=== PATIENT | male | born 1935 | race Caucasian/White ===

== ENCOUNTER 2023-07-08 19:39 | Inpatient (IN) | payer MEDICARE, SELFPAY ==
--- NOTE | 2023-07-08 20:07 | PCM.HP.STD ---
HPI - General General Date of Admission: 07/08/23 Date of Service: 07/11/23 Chief Complaint: Here for rehabilitation. HPI Narrative 07/05/2023 THEO ALVAREZ, is a 87 Male who presents to [facility] with fall, left hip fracture. Transfer to [facility]. 07/05/2023 Admit to [facility]. Syncope, no head injury. CT shows left hip fracture. Prepare for surgery. Check UA, C+S, Orthostatics for syncope, collapse. 07/05/2023 Orthopedics performed left hip hemiarthroplasty. 07/06/2023 Doing well. 07/07/2023 PT/OT for debility. Pain control. Replace K 3.1 UA negative, Urine culture negative. Tamsulosin 0.4mg, Roberts catheter for urinary retention/BPH. Lovenox for DVT prophylaxis. + Shuffling gait. CT abdomen/pelvis showed constipation. UTI later on treated with Keflex. 07/08/2023 Admit to TCU with debility, here for rehabilitation, strengthening, prior to discharge home with . [facility] Medical History (Updated 07/08/23 @ 20:[address] Jamie Deluna MD) BPH (benign prostatic hyperplasia) Closed left hip fracture Debility Fall Hypertension Hypokalemia Syncope Urinary retention Allergy/AdvReac Type Severity Reaction Status Date / Time No Known Allergies Allergy Verified 07/08/23 20:18 Surgical History (Updated 07/08/23 @ 20:[address] Jamie Deluna MD) History of left hip hemiarthroplasty Social History (Updated 07/08/23 @ 20:[address] Jamie Deluna MD) household members: spouse Smoking Status: Never smoker alcohol intake: never substance use type: does not use ROS Constitutional Constitutional: Denies chills, fever(s) or weight gain ENT HEENT: Denies headache(s), nasal congestion or nasal discharge Cardiovascular Cardiovascular: Denies chest pain or palpitations Respiratory/Chest Respiratory/Chest: Denies cough, excessive phlegm production or shortness of breath with exertion Gastrointestinal Gastrointestinal: Denies abdominal pain, nausea or vomiting Genitourinary Genitourinary: Denies dysuria Musculoskeletal Musculoskeletal: Denies joint pain or joint swelling Integumentary Integumentary: Denies rash or wounds Neurologic Neurologic: Denies focal weakness, numbness or tingling Psychiatric Psychiatric: Denies anxiety, auditory hallucinations, depression, homicidal ideation or suicidal ideation Physical Exam Const alert General Appearance: cooperative HEENT normocephalic Eyes PERRL and EOMs intact bilaterally Neck supple, no JVD and no carotid bruits Resp normal respiratory effort, normal air movement and clear to auscultation bilaterally Cardio regular rate and regular rhythm GI normal to inspection, nondistended, normoactive bowel sounds, non-tender and non-distended Bladder / Kidney Exam: catheter in place urethral Extremity normal capillary refill General Extremity: Negative for edema Skin no rashes or lesions noted General Skin Exam: no breakdown Psych affect normal Appearance: appropriate Results Lab / Micro Data 07/09/23 08:13 07/10/23 05:12 Assessment & Plan Assessment/Plan (1) Debility: (2) Fall: (3) Closed left hip fracture: (4) Syncope: (5) Urinary retention: (6) BPH (benign prostatic hyperplasia): (7) Hypertension: (8) Hypokalemia: (9) Urinary tract infection: PLAN: Plan 87 year old male with below past medical history hospitalized for left hip fracture, 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 Debility - PT/OT. Pain - Tylenol 1000mg q8, Tramadol 50mg q6h prn pain (1-5), Oxycodone 2.5mg q4h prn pain (6-10). Bowel - Miralax 17gm bid, senna/colace 1 tablet bid, Magnesium citrate 300ml daily prn. Adult immunization - Administer pneumonia vaccine, covid19 vaccine, flu vaccine as appropriate. DVT prophylaxis - Aspirin 81mg bid thru 08/04/2023. Urinary tract infection - Keflex 500mg q12h thru 07/15/2023. Hypertension - Metoprolol 25mg bid, Losartan 100mg daily, Nifedipine 60mg daily, HCTZ 25mg daily. Hypokalemia - KCL 20meq bidcm. BPH/Urinary retention - Tamsulosin 0.4mg daily, Voiding trails per protocol. Shuffling gait - monitor for Parkinson Disease, consider therapeutic trial of Sinemet.
[2023-07-08 20:10] VITALS: BP 139/56; PULSE 66; RESP 16; TEMP 36.3; O2SAT 95
[2023-07-08 22:53] VITALS: BP 139/56; PULSE 66
[2023-07-08] MEDS: Metoprolol Tartrate 25 MG Tablet PO (22:53)
[2023-07-08] MEDS: Acetaminophen 500 MG Tablet 1000 MG PO (22:54)
[2023-07-08] MEDS: Cephalexin 500 MG Capsule PO (22:55)
[2023-07-08] MEDS: Senna/Docusate Sodium 1 Tablet PO (22:56)
[2023-07-08] MEDS: Polyethylene Glycol 3350 17 GM PACKET PO (22:57)
[2023-07-09 05:00] VITALS: BP 152/67; PULSE 63; RESP 16; TEMP 36.6; O2SAT 95
[2023-07-09] MEDS: Acetaminophen 500 MG Tablet 1000 MG PO ×3 (05:05→21:13)
[2023-07-09 08:59] LABS: Anion Gap 5 (5-15); BUN 13 mg/dL (7-18); BUN/Creat Ratio 19.3 RATIO (10-20); Calcium,Total 8.2 mg/dL (8.5-10.1); Chloride 110 mmol/L (98-107); Creatinine, Serum 0.67 mg/dL (0.70-1.30); EST Glomerular Filtration Rate 119 mL/min (>60); Est Glom Filt Rate - Afr Amer 144 mL/min (>60); Glucose 105 mg/dL (74-106); Potassium 3.4 mmol/L (3.5-5.1); Sodium Level 141 mmol/L (136-145)
[2023-07-09 09:41] LABS: Absolute Lymphocyte Count 1.06 X10^3/uL (0.83-4.51); Basophil# 0.05 X10^3/uL; Basophil% 0.7 % (0-1); Eosinophil# 0.42 X10^3/uL; Eosinophils% 5.6 % (0-5); Hematocrit 40.8 % (40-54); Hemoglobin 13.4 g/dL (13.0-16.5); Lymphocyte # 1.06 X10^3/ul (0.83-4.51); Lymphocyte % 14.2 % (19-41); Mean Corp Hgb Conc 32.8 g/dL (32-36); Mean Corpuscular Hgb 31.9 pg (27.0-32.0); Mean Corpuscular Volume 97.1 fL (80-94); Mean Platelet Vol. 9.3 fl (6.2-12.0); Monocyte# 0.86 X10^3/uL; Monocyte% 11.6 % (0-10); NRBC Flagged by Analyzer 0 % (0-5); Neutrophil # 4.99 X10^3/uL (2.7-7.7); Neutrophil % 67.1 % (47-70); Platelet Count 194 K/mm3 (150-450); RBC Distribution Width CV 14.5 % (11.6-14.6); RBC Distribution Width SD 51.6 fl (35.1-43.9); White Blood Count 7.4 K/mm3 (4.4-11.0)
[2023-07-09 10:00] VITALS: PULSE 65; RESP 16; O2SAT 96
[2023-07-09] MEDS: Potassium Chloride Oral Tablet 20 MEQ 40 MEQ PO (10:47)
[2023-07-09 10:48] VITALS: BP 137/70; PULSE 67
[2023-07-09] MEDS: NIFEdipine 60 MG Tablet PO (10:48)
[2023-07-09] MEDS: Aspirin E.C. 81 MG Tablet PO ×2 (10:48→17:27)
[2023-07-09] MEDS: hydroCHLOROthiazide 25 MG Tablet PO (10:48)
[2023-07-09] MEDS: Potassium Chloride Oral Tablet 20 MEQ PO ×2 (10:48→17:27)
[2023-07-09] MEDS: Polyethylene Glycol 3350 17 GM PACKET PO ×2 (10:48→21:13)
[2023-07-09] MEDS: Losartan Potassium 100 MG Tablet PO (10:48)
[2023-07-09] MEDS: Senna/Docusate Sodium 1 Tablet PO ×2 (10:48→21:13)
[2023-07-09] MEDS: Metoprolol Tartrate 25 MG Tablet PO ×2 (10:48→21:14)
[2023-07-09] MEDS: Cephalexin 500 MG Capsule PO ×2 (10:48→21:13)
[2023-07-09] MEDS: Tuberculin,Purif.prot.deriv. 50 TU/ML Vial 0.1 ML ID (10:49)
[2023-07-09 11:21] VITALS: BMI 24.4
[2023-07-09 11:39] VITALS: BP 152/73; PULSE 65; RESP 16; TEMP 36.5; O2SAT 96
[2023-07-09] MEDS: oxyCODONE 5 MG Tablet 2.5 MG PO (13:38)
[2023-07-09] MEDS: Tamsulosin HCl 0.4 MG Capsule PO (17:27)
[2023-07-09 21:14] VITALS: BP 130/59; PULSE 71
[2023-07-10] MEDS: Acetaminophen 500 MG Tablet 1000 MG PO ×3 (05:26→21:24)
[2023-07-10] MEDS: oxyCODONE 5 MG Tablet 2.5 MG PO (05:34)
[2023-07-10 06:25] LABS: Anion Gap 5 (5-15); BUN 15 mg/dL (7-18); BUN/Creat Ratio 20.3 RATIO (10-20); Calcium,Total 8.5 mg/dL (8.5-10.1); Chloride 107 mmol/L (98-107); Creatinine, Serum 0.74 mg/dL (0.70-1.30); EST Glomerular Filtration Rate 106 mL/min (>60); Est Glom Filt Rate - Afr Amer 129 mL/min (>60); Estimated Creatinine Clearance 59.93 ml/min; Glucose 95 mg/dL (74-106); Potassium 3.5 mmol/L (3.5-5.1); Sodium Level 139 mmol/L (136-145)
[2023-07-10 08:21] VITALS: BP 145/62; PULSE 65
[2023-07-10] MEDS: Cephalexin 500 MG Capsule PO ×2 (08:21→21:25)
[2023-07-10] MEDS: Metoprolol Tartrate 25 MG Tablet PO ×2 (08:21→21:25)
[2023-07-10] MEDS: hydroCHLOROthiazide 25 MG Tablet PO (08:21)
[2023-07-10] MEDS: NIFEdipine 60 MG Tablet PO (08:21)
[2023-07-10] MEDS: Losartan Potassium 100 MG Tablet PO (08:21)
[2023-07-10] MEDS: Aspirin E.C. 81 MG Tablet PO ×2 (08:22→18:27)
[2023-07-10] MEDS: Potassium Chloride Oral Tablet 20 MEQ PO ×2 (08:22→18:27)
[2023-07-10 10:00] VITALS: BP 145/62; PULSE 65; RESP 16; TEMP 36.7; O2SAT 94
--- NOTE | 2023-07-10 12:48 | NURSING ---
family and pt aware of covid + pts on unit today
[2023-07-10] MEDS: traMADol 50 MG Tablet PO (13:01)
--- NOTE | 2023-07-10 13:37 | NURSING ---
dressing changed to LT hip incision, all sides of surgical mepilex with dried and fresh serosang drng. Incision with breanna, no active bleeding, slight seeping. incision well approximated, lots bruising around site no signs of infection.
[2023-07-10 15:12] VITALS: PULSE 78; RESP 16; O2SAT 97
[2023-07-10] MEDS: Tamsulosin HCl 0.4 MG Capsule PO (18:27)
[2023-07-10] MEDS: Polyethylene Glycol 3350 17 GM PACKET PO (21:23)
[2023-07-10] MEDS: Senna/Docusate Sodium 1 Tablet PO (21:24)
[2023-07-10 21:25] VITALS: BP 132/76; PULSE 71
[2023-07-11] MEDS: Acetaminophen 500 MG Tablet 1000 MG PO ×3 (05:38→21:16)
[2023-07-11] MEDS: Cephalexin 500 MG Capsule PO ×2 (08:50→21:15)
[2023-07-11] MEDS: NIFEdipine 60 MG Tablet PO (08:50)
[2023-07-11] MEDS: Aspirin E.C. 81 MG Tablet PO ×2 (08:50→17:48)
[2023-07-11] MEDS: hydroCHLOROthiazide 25 MG Tablet PO (08:50)
[2023-07-11 08:51] VITALS: PULSE 76
[2023-07-11] MEDS: Metoprolol Tartrate 25 MG Tablet PO ×2 (08:51→21:16)
[2023-07-11] MEDS: Losartan Potassium 100 MG Tablet PO (08:51)
[2023-07-11] MEDS: Potassium Chloride Oral Tablet 20 MEQ PO ×2 (08:51→17:48)
--- NOTE | 2023-07-11 13:12 | NURSING ---
Corn Shucker Note; Activity Asset: Ron Patrick prefers to be called Bennie. Bennie is independent in his choice of daily activities. 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 Sherita family and friends will visit and being him items he may need. He will welcome visit from the weighmaster and therapy dog when available. Staff will remind him of daily activities and respect his right to say no.
[2023-07-11 15:01] VITALS: BP 119/69; PULSE 60; RESP 16; TEMP 36.6; O2SAT 95
--- NOTE | 2023-07-11 16:20 | CASEMGMT ---
Social Work SW met with pt to complete psychosocial assessment. SW verified contacts. Pt lives at home with his who is retired. 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 Pt was independent prior to fall and plans to return home with spouse at time of discharge. SW educated pt on [facility] insurance and that NRD is 07/12 and continued stay is not guaranteed. SW to continue to follow for d/c planning. SANDIE Gonsalez
--- NOTE | 2023-07-11 16:29 | NURSING ---
Family given update additional staff members have covid.
[2023-07-11] MEDS: Tamsulosin HCl 0.4 MG Capsule PO (17:55)
[2023-07-11 21:11] VITALS: BP 138/82; PULSE 87; RESP 18; TEMP 36.6; O2SAT 95
[2023-07-11 21:16] VITALS: BP 138/82; PULSE 87
[2023-07-11] MEDS: Senna/Docusate Sodium 1 Tablet PO (21:16)
--- NOTE | 2023-07-11 21:20 | NURSING ---
Pt found on floor in room next to bed at 2100, states he did not hit his head and was attempting to go to bed. Pt had on grippy socks and call light in reach. Educated on need to use call light for assistance. Vitals WNL, PERRLA, no visable signs of discomfort/distress or new injury at this time. Mepilex to Left hip still in place . RN and stevedoring supervisor, Dr. Deluna notified.
--- NOTE | 2023-07-11 21:34 | NURSING ---
Addendum entered by Leeann King 07/11/23 21:44: Dr. Deluna updated on fall. N.O. for personal alarm. Original Note: glue specialty supervisor updated on fall.
--- NOTE | 2023-07-11 21:49 | NURSING ---
N.OKayce from Dr. Deluna for a personal alarm d/t recent fall.
[2023-07-11 22:00] VITALS: BP 141/68; PULSE 78; RESP 16; TEMP 36.7; O2SAT 92
--- NOTE | 2023-07-11 22:05 | NURSING ---
Pt's notified at this time , thankful for phone call. Will continue to monitor pt.
[2023-07-12] MEDS: Acetaminophen 500 MG Tablet 1000 MG PO ×3 (06:53→21:41)
[2023-07-12 08:31] VITALS: BP 125/64; PULSE 66
[2023-07-12] MEDS: traMADol 50 MG Tablet PO (08:31)
[2023-07-12] MEDS: Metoprolol Tartrate 25 MG Tablet PO ×2 (08:31→21:38)
[2023-07-12] MEDS: hydroCHLOROthiazide 25 MG Tablet PO (08:32)
[2023-07-12] MEDS: Senna/Docusate Sodium 1 Tablet PO ×2 (08:32→21:41)
[2023-07-12] MEDS: Aspirin E.C. 81 MG Tablet PO ×2 (08:32→16:37)
[2023-07-12] MEDS: Losartan Potassium 100 MG Tablet PO (08:32)
[2023-07-12] MEDS: Potassium Chloride Oral Tablet 20 MEQ PO ×2 (08:33→16:37)
[2023-07-12] MEDS: Cephalexin 500 MG Capsule PO ×2 (08:33→21:41)
[2023-07-12] MEDS: NIFEdipine 60 MG Tablet PO (08:33)
[2023-07-12 08:36] VITALS: PULSE 66
--- NOTE | 2023-07-12 11:56 | PCM.PN.DRR ---
TCU RX Drug Regimen Review Subjective/Objective Subjective/Objective: Subjective: 87 YOM admitted to TCU S/P hospitalization at an outside facility secondary to fall. Patient had a L-hip hemiarthroplasty on 07/05/23, and also developed a UTI while at the outside hospital. Admitted to TCU 07/08/23 for rehabilitation and strengthening prior to discharge home where he resides with his . Objective: Allergies No Known Allergies Allergy (Verified 07/08/23 20:18) Current Medications Generic Name Dose Route Start Last Admin Trade Name Freq PRN Reason Stop Dose Admin Acetaminophen 1,000 mg 07/08/23 22:00 07/12/23 06:53 Acetaminophen 500 Mg Tablet PO 1,000 mg Q8 ELLY Administration Aspirin 81 mg 07/09/23 08:00 07/12/23 08:32 Aspirin E.C. 81 Mg Tablet PO 08/04/23 19:59 81 mg BIDCM ELLY Administration Cephalexin 500 mg 07/08/23 22:00 07/12/23 08:33 Cephalexin 500 Mg Capsule PO 07/15/23 22:01 500 mg Q12 ELLY Administration Hydrochlorothiazide 25 mg 07/09/23 10:00 07/12/23 08:32 Hydrochlorothiazide 25 Mg Tablet PO 25 mg DAILY ELLY Administration Losartan Potassium 100 mg 07/09/23 10:00 07/12/23 08:32 Losartan Potassium 100 Mg Tablet PO 100 mg DAILY ELLY Administration Magnesium Citrate 300 ml 07/08/23 20:21 Magnesium Citrate 300 Ml PO DAILY PRN Constipation Metoprolol Tartrate 25 mg 07/08/23 22:00 07/12/23 08:31 Metoprolol Tartrate 25 Mg Tablet PO 25 mg BID ELLY Administration Nifedipine 60 mg 07/09/23 10:00 07/12/23 08:33 Nifedipine 60 Mg Tablet PO 60 mg DAILY ELLY Administration Oxycodone HCl 2.5 mg 07/08/23 20:21 07/10/23 05:34 Oxycodone 5 Mg Tablet PO 2.5 mg Q4H PRN PRN Administration Pain Score 6-10 Polyethylene Glycol 17 gm 07/08/23 22:00 07/12/23 08:33 Polyethylene Glycol 3350 17 Gm Packet PO Not Given BID ELLY Potassium Chloride 20 meq 07/09/23 08:00 07/12/23 08:33 Potassium Chloride Oral Tablet 20 Meq PO 20 meq BIDCM ELLY Administration Senna/Docusate Sodium 1 tablet 07/08/23 22:00 07/12/23 08:32 Senna/Docusate Sodium 1 Tablet PO 1 tablet BID ELLY Administration Sodium Chloride 10 - 40 ml 07/08/23 20:20 0.9% Saline Lock 10 Ml Syringe IV UD PRN SALINE FLUSH Tamsulosin HCl 0.4 mg 07/09/23 17:30 07/11/23 17:55 Tamsulosin Hcl 0.4 Mg Capsule PO 0.4 mg DAILY@1730 ELLY Administration Tramadol HCl 50 mg 07/08/23 20:21 07/12/23 08:31 Tramadol 50 Mg Tablet PO 50 mg Q6H PRN PRN Administration Pain Score 1-5 Tuberculin PPD 0.1 ml 07/16/23 10:00 Tuberculin,Purif.Prot.Deriv. 50 Tu/Ml Vial ID 07/16/23 10:01 X1 ONE Problem List (Updated 07/08/23 @ 20:[address] Jamie Deluna MD) Urinary tract infection (Acute) Hypokalemia (Acute) Hypertension (Chronic) BPH (benign prostatic hyperplasia) (Acute) Urinary retention (Acute) Syncope (Acute) Closed left hip fracture (Acute) Fall (Acute) Debility (Acute) Vital Signs Temp Pulse Resp BP Pulse Ox O2 Del Method 98.0 F 66 16 125/64 H 92 Room Air 07/11/23 22:00 07/12/23 08:36 07/11/23 22:00 07/12/23 08:31 07/11/23 22:00 07/12/23 08:36 Oxygen Delivery Method Room Air Weight: 83.915 kg Body Mass Index (BMI) 24.4 Sodium 139 mmol/L (136-145) 07/10/23 05:12 Potassium 3.5 mmol/L (3.5-5.1) 07/10/23 05:12 Chloride 107 mmol/L (98-107) 07/10/23 05:12 Carbon Dioxide 27.0 mmol/L (21.0-32.0) 07/10/23 05:12 Anion Gap 5 (5-15) 07/10/23 05:12 BUN 15 mg/dL (7-18) 07/10/23 05:12 Creatinine 0.74 mg/dL (0.70-1.30) 07/10/23 05:12 Est GFR (MDRD) Af Amer 129 mL/min (>60) 07/10/23 05:12 Est GFR (MDRD) Non-Af 106 mL/min (>60) 07/10/23 05:12 BUN/Creatinine Ratio 20.3 RATIO (10-20) H 07/10/23 05:12 Glucose 95 mg/dL (74-106) 07/10/23 05:12 Assessment/Plan: 1. Pain: Tylenol 1000mg PO Q8h, Tramadol 50mg PO Q6h PRN Pain 1-5, Oxycodone 2.5mg PO Q4h PRN Pain 6-10. Please continue to monitor for increased/decreased S/S pain, PRN medication usage, constipation/oversedation with narcotic usage. - To date, the patient has used 2 doses of both tramadol and oxycodone. Premedication pain scores rated 5-9/10, post-med pain scores rated 0-4. It appears patient's pain is being managed at this time. 2. HTN: Hydrochlorothiazide 25mg PO daily, Losartan 100mg PO daily, Lopressor 25mg PO BID, Nifedipine 60mg PO daily. Please continue to monitor BP (range 119-141/64-82), pulse (range 66-87), electrolytes (WNL 07/10/23), lower extremity swelling, renal function (Scr 0.74 on 07/10). 3. Post-op DVT Prophylaxis: Aspirin 81mg PO BID thru 08/04/23. Please continue to monitor H/H (WNL on 07/10), S/S bleeding/bruising, N/V/stomach upset with administration. 4. UTI/ BPH: Keflex 500mg PO BID thru 07/15/23, Flomax 0.4mg PO daily. Please continue to monitor for resolution of infection, N/V/D, urinary retention/frequency/hesitancy. 5. Hypokalemia: K-Dur 20mEq PO BID. Please continue to monitor potassium levels (3.5 on 07/10), stomach upset with administration. 6. Bowel: Miralax 17g PO BID, Senna/Docusate 1 tab PO BID, Magnesium Citrate 300mL PO daily PRN. Please continue to monitor for increased/decreased S/S constipation and/or diarrhea - To date, the patient does not have a documented BM. Please evaluate and consider giving PRN medication since pt without BM for >48hrs Assessment/Plan for indications treated with psychotropic medications: The patient is not currently taking any psychotropic medications at time of medication review. Medical chart and medication regimen reviewed. The following medication irregularities or issues were identified: No irregularities were identified at time of medication review Date Date of Note:: 07/12/23
[2023-07-12 16:00] VITALS: BP 125/60; PULSE 59; RESP 16; TEMP 36; O2SAT 96
[2023-07-12] MEDS: Tamsulosin HCl 0.4 MG Capsule PO (18:06)
[2023-07-12 21:38] VITALS: BP 114/61; PULSE 72
[2023-07-13] MEDS: Acetaminophen 500 MG Tablet 1000 MG PO ×3 (05:23→21:19)
[2023-07-13] MEDS: Potassium Chloride Oral Tablet 20 MEQ PO ×2 (09:58→17:11)
[2023-07-13] MEDS: Aspirin E.C. 81 MG Tablet PO ×2 (09:58→17:12)
[2023-07-13] MEDS: NIFEdipine 60 MG Tablet PO (09:59)
[2023-07-13] MEDS: Losartan Potassium 100 MG Tablet PO (09:59)
[2023-07-13] MEDS: hydroCHLOROthiazide 25 MG Tablet PO (09:59)
[2023-07-13] MEDS: Cephalexin 500 MG Capsule PO ×2 (10:00→21:18)
[2023-07-13] MEDS: Senna/Docusate Sodium 1 Tablet PO (10:00)
--- NOTE | 2023-07-13 10:12 | CASEMGMT ---
Social Work IDT met with patient, and son for care plan meeting. Discussed patient's progress in PT/OT/SN. Educated to [facility] insurance with NRD 07/18, EDC 07/25. IDT recommending 16/05 care and concerned about being able to care for pt. Educated to nonskilled and skilled HHC, SNF and financial liability. Encouraged for family to discuss alternative DC plan prior to insurance issuing DC. SW offered assistance for DC planning. Will continue to follow. RUBI NguyenW
[2023-07-13 11:45] VITALS: BP 129/64; PULSE 62
[2023-07-13] MEDS: Metoprolol Tartrate 25 MG Tablet PO ×2 (11:45→21:19)
--- NOTE | 2023-07-13 15:23 | NURSING ---
Notified family of positive new covid patients
[2023-07-13 16:00] VITALS: BP 110/56; PULSE 57; RESP 16; TEMP 36.2; O2SAT 94
[2023-07-13] MEDS: Tamsulosin HCl 0.4 MG Capsule PO (17:12)
--- NOTE | 2023-07-13 17:39 | NURSING ---
Melisa () was updated + Covid patients on floor
[2023-07-13] MEDS: traMADol 50 MG Tablet PO (21:18)
[2023-07-13 21:19] VITALS: BP 121/55; PULSE 60
[2023-07-13 23:49] VITALS: O2SAT 95
[2023-07-14] MEDS: Acetaminophen 500 MG Tablet 1000 MG PO ×3 (05:44→22:20)
[2023-07-14] MEDS: Potassium Chloride Oral Tablet 20 MEQ PO ×2 (08:26→18:01)
[2023-07-14] MEDS: Aspirin E.C. 81 MG Tablet PO ×2 (08:26→18:01)
[2023-07-14] MEDS: traMADol 50 MG Tablet PO (08:35)
[2023-07-14] MEDS: hydroCHLOROthiazide 25 MG Tablet PO (12:41)
[2023-07-14] MEDS: Cephalexin 500 MG Capsule PO ×2 (12:41→22:20)
[2023-07-14 12:42] VITALS: PULSE 80
[2023-07-14] MEDS: Metoprolol Tartrate 25 MG Tablet PO ×2 (12:42→22:20)
[2023-07-14] MEDS: Losartan Potassium 100 MG Tablet PO (12:44)
[2023-07-14] MEDS: NIFEdipine 60 MG Tablet PO (12:44)
[2023-07-14 14:55] VITALS: BP 132/57; PULSE 61; RESP 14; TEMP 36.6; O2SAT 96
--- NOTE | 2023-07-14 16:22 | CASEMGMT ---
Social Work BIMS (10/07) and PHQ-9 (05/19) completed for MDS assessment. Sharon Watson. LOSS CONTROL CONSULTANT LOOM FIXER
[2023-07-14] MEDS: Tamsulosin HCl 0.4 MG Capsule PO (18:02)
[2023-07-14 22:20] VITALS: BP 132/61; PULSE 64
--- NOTE | 2023-07-14 22:39 | NURSING ---
Dressing changed to left hip incision. Still bruising all around cite, no active drainage or bleeding, no observation of infection, breanna intact.
[2023-07-15] MEDS: Acetaminophen 500 MG Tablet 1000 MG PO ×3 (05:33→21:34)
--- NOTE | 2023-07-15 09:46 | NURSING ---
Biometrics Technician Note; MDS Complete
[2023-07-15] MEDS: Losartan Potassium 100 MG Tablet PO (10:14)
[2023-07-15] MEDS: Potassium Chloride Oral Tablet 20 MEQ PO ×2 (10:14→17:45)
[2023-07-15] MEDS: NIFEdipine 60 MG Tablet PO (10:14)
[2023-07-15] MEDS: Cephalexin 500 MG Capsule PO ×2 (10:14→21:34)
[2023-07-15 10:15] VITALS: PULSE 80
[2023-07-15] MEDS: hydroCHLOROthiazide 25 MG Tablet PO (10:15)
[2023-07-15] MEDS: Metoprolol Tartrate 25 MG Tablet PO ×2 (10:15→21:34)
[2023-07-15] MEDS: Aspirin E.C. 81 MG Tablet PO ×2 (10:16→17:45)
[2023-07-15 14:53] VITALS: BP 121/50; PULSE 55; RESP 17; TEMP 37; O2SAT 96
[2023-07-15] MEDS: Tamsulosin HCl 0.4 MG Capsule PO (17:45)
[2023-07-15 21:34] VITALS: PULSE 60
[2023-07-16] MEDS: Acetaminophen 500 MG Tablet 1000 MG PO ×3 (05:33→22:20)
[2023-07-16] MEDS: Capsaicin 0.025% 1 APPLIC Tube TOPICAL ×3 (05:34→22:20)
[2023-07-16 07:57] LABS: Anion Gap 4 (5-15); BUN 20 mg/dL (7-18); BUN/Creat Ratio 24.7 RATIO (10-20); Calcium,Total 8.5 mg/dL (8.5-10.1); Chloride 111 mmol/L (98-107); Creatinine, Serum 0.81 mg/dL (0.70-1.30); EST Glomerular Filtration Rate 96 mL/min (>60); Est Glom Filt Rate - Afr Amer 116 mL/min (>60); Estimated Creatinine Clearance 73.98 ml/min; Glucose 94 mg/dL (74-106); Potassium 3.5 mmol/L (3.5-5.1); Sodium Level 140 mmol/L (136-145)
[2023-07-16] MEDS: Aspirin E.C. 81 MG Tablet PO ×2 (09:34→17:46)
[2023-07-16] MEDS: Potassium Chloride Oral Tablet 20 MEQ PO ×2 (09:34→17:47)
[2023-07-16] MEDS: hydroCHLOROthiazide 25 MG Tablet PO (09:35)
[2023-07-16] MEDS: Losartan Potassium 100 MG Tablet PO (09:35)
[2023-07-16] MEDS: NIFEdipine 60 MG Tablet PO (09:44)
[2023-07-16] MEDS: oxyCODONE 5 MG Tablet 2.5 MG PO (09:49)
[2023-07-16] MEDS: Tuberculin,Purif.prot.deriv. 50 TU/ML Vial 0.1 ML ID (09:51)
[2023-07-16 09:52] VITALS: BP 122/52; PULSE 52
[2023-07-16 11:35] VITALS: BP 137/59; PULSE 52; RESP 18; TEMP 37; O2SAT 95
[2023-07-16] MEDS: Tamsulosin HCl 0.4 MG Capsule PO (17:47)
[2023-07-16 18:07] LABS: Absolute Lymphocyte Count 1.67 X10^3/uL (0.83-4.51); Absolute Neutrophil Count 4.2 X10^3/uL (2.0-7.7); Basophil% 1.4 % (0-1); Eosinophil# 0.65 X10^3/uL; Eosinophils% 8.9 % (0-5); Hemoglobin 13.2 g/dL (13.0-16.5); Lymphocyte # 1.67 X10^3/ul (0.83-4.51); Lymphocyte % 22.8 % (19-41); Mean Corpuscular Hgb 31.9 pg (27.0-32.0); Mean Corpuscular Volume 96.6 fL (80-94); Mean Platelet Vol. 9.3 fl (6.2-12.0); Monocyte# 0.69 X10^3/uL; Monocyte% 9.4 % (0-10); NRBC Flagged by Analyzer 0 % (0-5); Neutrophil % 57.2 % (47-70); Platelet Count 328 K/mm3 (150-450); RBC Distribution Width CV 14.3 % (11.6-14.6); RBC Distribution Width SD 51.5 fl (35.1-43.9); Red Blood Count 4.14 M/mm3 (4.6-6.2); White Blood Count 7.3 K/mm3 (4.4-11.0)
[2023-07-16 22:22] VITALS: BP 122/69; PULSE 61
[2023-07-16] MEDS: Metoprolol Tartrate 25 MG Tablet PO (22:22)
[2023-07-17] MEDS: Capsaicin 0.025% 1 APPLIC Tube TOPICAL ×2 (06:29→13:29)
[2023-07-17 06:30] VITALS: O2SAT 96
[2023-07-17] MEDS: Acetaminophen 500 MG Tablet 1000 MG PO ×2 (06:30→13:28)
[2023-07-17] MEDS: Aspirin E.C. 81 MG Tablet PO ×2 (08:28→16:42)
[2023-07-17] MEDS: hydroCHLOROthiazide 25 MG Tablet PO (08:29)
[2023-07-17] MEDS: Potassium Chloride Oral Tablet 20 MEQ PO ×2 (08:29→16:42)
[2023-07-17] MEDS: traMADol 50 MG Tablet PO ×2 (08:34→20:36)
[2023-07-17 08:35] VITALS: BP 131/58; PULSE 60
[2023-07-17] MEDS: Metoprolol Tartrate 25 MG Tablet PO ×2 (08:35→20:35)
[2023-07-17] MEDS: NIFEdipine 60 MG Tablet PO (08:36)
[2023-07-17] MEDS: Losartan Potassium 100 MG Tablet PO (08:36)
[2023-07-17 15:35] VITALS: BP 128/64; PULSE 57; RESP 14; TEMP 36.9; O2SAT 94
[2023-07-17] MEDS: Tamsulosin HCl 0.4 MG Capsule PO (16:42)
[2023-07-17 20:35] VITALS: BP 131/57; PULSE 62
[2023-07-17] MEDS: Senna/Docusate Sodium 1 Tablet PO (20:36)
[2023-07-18] MEDS: Capsaicin 0.025% 1 APPLIC Tube TOPICAL ×3 (05:36→21:48)
[2023-07-18] MEDS: Acetaminophen 500 MG Tablet 1000 MG PO ×3 (05:36→21:42)
[2023-07-18] MEDS: Potassium Chloride Oral Tablet 20 MEQ PO ×2 (09:27→16:52)
[2023-07-18] MEDS: Aspirin E.C. 81 MG Tablet PO ×2 (09:27→16:52)
[2023-07-18] MEDS: hydroCHLOROthiazide 25 MG Tablet PO (09:28)
[2023-07-18] MEDS: Losartan Potassium 100 MG Tablet PO (09:28)
[2023-07-18 09:29] VITALS: BP 144/58; PULSE 54
[2023-07-18] MEDS: NIFEdipine 60 MG Tablet PO (09:29)
[2023-07-18] MEDS: Metoprolol Tartrate 25 MG Tablet PO ×2 (09:29→21:46)
[2023-07-18 09:32] VITALS: BP 144/58; PULSE 54
[2023-07-18 16:00] VITALS: BP 134/61; PULSE 50; RESP 16; TEMP 36.9; O2SAT 96
[2023-07-18] MEDS: Tamsulosin HCl 0.4 MG Capsule PO (16:52)
[2023-07-18] MEDS: traMADol 50 MG Tablet PO (21:42)
[2023-07-18 21:46] VITALS: BP 132/54; PULSE 58
[2023-07-18 21:50] VITALS: O2SAT 95
[2023-07-19] MEDS: Capsaicin 0.025% 1 APPLIC Tube TOPICAL ×3 (05:15→21:10)
[2023-07-19] MEDS: Acetaminophen 500 MG Tablet 1000 MG PO ×3 (05:15→21:09)
[2023-07-19 09:16] VITALS: BP 132/58; PULSE 64
[2023-07-19] MEDS: Aspirin E.C. 81 MG Tablet PO ×2 (09:16→17:19)
[2023-07-19] MEDS: Potassium Chloride Oral Tablet 20 MEQ PO ×2 (09:16→17:19)
[2023-07-19] MEDS: Metoprolol Tartrate 25 MG Tablet PO ×2 (09:16→21:12)
[2023-07-19] MEDS: hydroCHLOROthiazide 25 MG Tablet PO (09:17)
[2023-07-19] MEDS: Losartan Potassium 100 MG Tablet PO (09:17)
[2023-07-19] MEDS: Clotrimazole/Betamethasone 1 Tube 1 APPLIC TOPICAL ×2 (09:17→22:55)
[2023-07-19] MEDS: NIFEdipine 60 MG Tablet PO (09:17)
[2023-07-19 09:22] VITALS: BP 132/58; PULSE 64
[2023-07-19 13:31] VITALS: BP 134/68; PULSE 48; RESP 16; TEMP 36.9; O2SAT 96
--- NOTE | 2023-07-19 14:54 | CASEMGMT ---
Social Work completed therapy training with pt. Therapists recommending pt DC to SNF for continued therapy and care needed. is unable to provide care for pt at home. and pt agreed to referrals to [facility] and [facility]. Therapists noted expressed concern about finances. SW left voicemail with to follow up. Sharon Watson, SHEET METAL LAYOUT WORKER COUNTY HISTORIAN
[2023-07-19] MEDS: Tamsulosin HCl 0.4 MG Capsule PO (17:18)
[2023-07-19 20:00] VITALS: PULSE 61; RESP 16; O2SAT 97
[2023-07-19 21:12] VITALS: BP 139/59; PULSE 62
[2023-07-19 23:03] VITALS: BP 114/73; PULSE 91
[2023-07-20] MEDS: Acetaminophen 500 MG Tablet 1000 MG PO ×3 (05:13→21:01)
[2023-07-20] MEDS: Capsaicin 0.025% 1 APPLIC Tube TOPICAL ×3 (05:13→21:02)
[2023-07-20] MEDS: Clotrimazole/Betamethasone 1 Tube 1 APPLIC TOPICAL ×2 (08:21→21:02)
[2023-07-20] MEDS: Senna/Docusate Sodium 1 Tablet PO (08:22)
[2023-07-20] MEDS: Potassium Chloride Oral Tablet 20 MEQ PO ×2 (08:23→16:34)
[2023-07-20] MEDS: Aspirin E.C. 81 MG Tablet PO ×2 (08:23→16:34)
[2023-07-20 08:24] VITALS: BP 145/56; PULSE 57
[2023-07-20] MEDS: Metoprolol Tartrate 25 MG Tablet PO ×2 (08:24→21:01)
[2023-07-20] MEDS: Losartan Potassium 100 MG Tablet PO (08:24)
[2023-07-20] MEDS: hydroCHLOROthiazide 25 MG Tablet PO (08:24)
[2023-07-20] MEDS: Polyethylene Glycol 3350 17 GM PACKET PO (08:24)
[2023-07-20] MEDS: NIFEdipine 60 MG Tablet PO (08:24)
--- NOTE | 2023-07-20 08:53 | CASEMGMT ---
Addendum entered by Sharon Watson 07/20/23 14:36: [facility] and [facility] can both accept pt and provided pricing. SW phoned to update. [facility] is significantly cheaper in [place] and that is 's first choice. SW secured [facility] and updated other SNFs. Will await DC date from insurance. Addendum entered by Sharon Watson 07/20/23 11:37: [facility] does not have beds. [facility] can accept and provided pricing at $475 or $450/day, requesting 14 days. SW offered to secure [facility] or refer to other SNFs. agreeable to refer to [facility] and [facility] for differences in pricing. Referrals made via [facility]. Original Note: Social Work SW phoned again. Spoke with and confirmed plan for SNF at previous choices. confirmed. SW inquired about finances. shared some finances and pt would not qualify for Medicaid. is agreeable to pay privately. SW provided estimated pricing for 30 days initially. SW placed referrals via [facility]Port to [facility] and [facility]. Will continue to follow. Sharon Watson, RUBI HERNDONW
--- NOTE | 2023-07-20 08:55 | NURSING ---
Cancelled 07/22/23 appt with MELLY Ramirez per patient/family request.
--- NOTE | 2023-07-20 09:10 | NURSING ---
This nurse spoke with Chandni Ramirez CNP urology's office and cancelled appointment per request. is requesting that if f/u with urology is needed to f/u with Dr. Wilkerson at this time. James's office stated that they were just going to see him for voiding trial for surgical cheung placement but a follow up appointment is not necessary at this time and that Dr. Wilkerson is fine to see resident for future appointments. This nurse spoke with Dr. Wilkerson's office and they stated they have not seen patient since 2020 as he was [facility] levels in 2019. Urology performed a trus biopsy that was negative and then saw him 5 months later for a follow up. Resident was supposed to be seen in their office in November 2021 but cancelled appointment and never called back to reschedule. Urology office is not requesting appointment at this time, states he can wait and f/u after discharge if they would like.
[2023-07-20 10:33] VITALS: BMI 24.0
[2023-07-20 13:52] VITALS: BP 135/60; PULSE 50; RESP 18; TEMP 36.6; O2SAT 97
[2023-07-20] MEDS: Tamsulosin HCl 0.4 MG Capsule PO (16:34)
[2023-07-20 21:01] VITALS: BP 135/57; PULSE 60
[2023-07-20 21:13] VITALS: PULSE 60; RESP 16; O2SAT 98
[2023-07-21] MEDS: Acetaminophen 500 MG Tablet 1000 MG PO ×3 (05:36→21:22)
[2023-07-21] MEDS: Capsaicin 0.025% 1 APPLIC Tube TOPICAL (05:37)
--- NOTE | 2023-07-21 05:55 | NURSING ---
Roberts catheter removed at this time, patient tolerated well. Did bladder scan with result showing 345cc in bladder. Urinal at bedside, encouraged patient to attempt to urinate soon. Will continue to monitor.
[2023-07-21 08:18] VITALS: PULSE 57; RESP 16; O2SAT 95
[2023-07-21] MEDS: Losartan Potassium 100 MG Tablet PO (09:20)
[2023-07-21] MEDS: Potassium Chloride Oral Tablet 20 MEQ PO ×2 (09:20→17:54)
[2023-07-21] MEDS: Aspirin E.C. 81 MG Tablet PO ×2 (09:20→17:54)
[2023-07-21] MEDS: NIFEdipine 60 MG Tablet PO (09:21)
[2023-07-21] MEDS: hydroCHLOROthiazide 25 MG Tablet PO (09:21)
[2023-07-21 09:25] VITALS: BP 121/52; PULSE 62
[2023-07-21] MEDS: Metoprolol Tartrate 25 MG Tablet PO ×2 (09:25→21:23)
--- NOTE | 2023-07-21 10:04 | MDS.RN ---
Information for the mds was obtained from review of the clinical record, interview of resident, staff, and direct observation of resident's care.
[2023-07-21 14:49] VITALS: BP 123/62; PULSE 59; RESP 14; TEMP 36.6; O2SAT 94
[2023-07-21] MEDS: Tamsulosin HCl 0.4 MG Capsule PO (17:54)
[2023-07-21 21:23] VITALS: PULSE 54
[2023-07-22] MEDS: Acetaminophen 500 MG Tablet 1000 MG PO ×3 (05:41→22:39)
[2023-07-22] MEDS: Losartan Potassium 100 MG Tablet PO (08:42)
[2023-07-22] MEDS: Aspirin E.C. 81 MG Tablet PO ×2 (08:42→17:15)
[2023-07-22] MEDS: Potassium Chloride Oral Tablet 20 MEQ PO ×2 (08:42→17:15)
[2023-07-22 08:43] VITALS: BP 147/61; PULSE 55
[2023-07-22] MEDS: Metoprolol Tartrate 25 MG Tablet PO ×2 (08:43→22:40)
[2023-07-22] MEDS: hydroCHLOROthiazide 25 MG Tablet PO (08:43)
[2023-07-22] MEDS: NIFEdipine 60 MG Tablet PO (08:44)
[2023-07-22] MEDS: Clotrimazole/Betamethasone 1 Tube 1 APPLIC TOPICAL ×2 (08:45→22:40)
[2023-07-22 08:49] VITALS: BP 147/61; PULSE 55
--- NOTE | 2023-07-22 10:15 | CASEMGMT ---
Social Work Insurance issued LCD 07/24,DC 07/25. SW phoned to update and confirm DC plan to [facility]. confirmed. SW spoke with pt to update. Pt confirmed DC plan as well. SW updated [facility]. PASRR completed. Scheduled w/c transport through [facility] for [facility]. Plan: DC 07/25, [facility], intermediate, part B therapies BIMS and PHQ-9 completed for MDS assessment. Sharon Watson, PAYROLL LEAD WATERSHED ENGINEER
[2023-07-22] MEDS: Flu Vacc QS2023-24(65YR UP)/PF 240 MCG/0.7 ML Syringe IM (13:07)
--- NOTE | 2023-07-22 14:07 | DS.PCM_ITS ---
Providers Date of Admission: 07/08/23 Primary Care Physician: Dr. Tae Mariscal MD Reason For Visit: L FEMUR FX Diagnosis Discharge Diagnosis (1) Debility: Status: Acute Code(s): R53.81 - Other malaise (2) Fall: Status: Acute Code(s): W19.XXXA - Unspecified fall, initial encounter (3) Closed left hip fracture: Status: Acute Code(s): S72.002A - Fracture of unspecified part of neck of left femur, initial encounter for closed fracture (4) Syncope: Status: Acute Code(s): R55 - Syncope and collapse (5) Urinary retention: Status: Acute Code(s): R33.9 - Retention of urine, unspecified (6) BPH (benign prostatic hyperplasia): Status: Acute Code(s): N40.0 - Benign prostatic hyperplasia without lower urinary tract symptoms (7) Hypertension: Status: Chronic Code(s): I10 - Essential (primary) hypertension (8) Hypokalemia: Status: Acute Code(s): E87.6 - Hypokalemia (9) Urinary tract infection: Status: Acute Code(s): N39.0 - Urinary tract infection, site not specified Plan 87 year old male with below past medical history hospitalized for left hip fracture, 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 * Debility - PT/OT. * Pain - Tylenol 1000mg q8, Tramadol 50mg q6h prn pain (1-5), Oxycodone 2.5mg q4h prn pain (6-10). * Bowel - Miralax 17gm bid, senna/colace 1 tablet bid, Magnesium citrate 300ml daily prn. * Adult immunization - Administer pneumonia vaccine, covid19 vaccine, flu vaccine as appropriate. * DVT prophylaxis - Aspirin 81mg bid thru 08/04/2023. * Urinary tract infection - Keflex 500mg q12h thru 07/15/2023. * Hypertension - Metoprolol 25mg bid, Losartan 100mg daily, Nifedipine 60mg daily, HCTZ 25mg daily. * Hypokalemia - KCL 20meq bidcm. * BPH/Urinary retention - Tamsulosin 0.4mg daily, Voiding trails per protocol. * Shuffling gait - monitor for Parkinson Disease, consider therapeutic trial of Sinemet. Medications at Discharge Home Medications acetaminophen 500 mg tablet 1,000 mg (2 x 500 mg) PO Q8 #0 tabs 07/22/23 aspirin 81 mg tablet,delayed release 81 mg PO BIDCM 10 days #20 tabs 07/22/23 hydrochlorothiazide 25 mg tablet 25 mg PO DAILY #0 tabs 07/22/23 losartan 100 mg tablet 100 mg PO DAILY #0 tabs 07/22/23 metoprolol tartrate 25 mg tablet 25 mg PO BID #0 tabs 07/22/23 nifedipine 60 mg tablet,extended release 24 hr 60 mg PO DAILY #0 tabs 07/22/23 potassium chloride 20 mEq tablet,extended release(part/cryst) (Klor-Con M) 20 meq PO BIDCM 30 days #0 tabs 07/22/23 tamsulosin 0.4 mg capsule 0.4 mg PO DAILY@1730 30 days #0 caps 07/22/23 Hospital Course Operations - (Left hip hemiarthroplasty.) Procedures None Summary of Care Provided Minutes Spent on Discharge: 35 Hospital Course: 87 year old male with below past medical history hospitalized for left hip fracture, 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 Discharge to [facility] 08/12/2023, intermediate, part B therapies. Physical Exam Const alert General Appearance: cooperative HEENT normocephalic Eyes PERRL and EOMs intact bilaterally Neck supple, no JVD and no carotid bruits Resp normal respiratory effort, normal air movement and clear to auscultation bilaterally Cardio regular rate and regular rhythm GI normal to inspection, nondistended, normoactive bowel sounds, non-tender and non-distended Extremity normal capillary refill General Extremity: Negative for edema Skin no rashes or lesions noted General Skin Exam: no breakdown Psych affect normal Appearance: appropriate Weight / BMI Weight Weight: 82.554 kg Body Mass Index (BMI) 24.0 ABG / Lab / Microbiology Data 07/16/23 06:57 07/16/23 06:57 Microbiology: Microbiology 07/22/23 05:45 Nasal Secretion SARS-CoV-2 Antigen (Rapid) - Final 07/19/23 05:13 Nasal Secretion SARS-CoV-2 Antigen (Rapid) - Final 07/16/23 05:40 Nasal Secretion SARS-CoV-2 Antigen (Rapid) - Final 07/13/23 05:25 Nasal Secretion SARS-CoV-2 Antigen (Rapid) - Final 07/10/23 05:25 Nasal Secretion SARS-CoV-2 Antigen (Rapid) - Final 07/08/23 20:13 Nasal Secretion SARS-CoV-2 Antigen (Rapid) - Final D/C Instructions Discharge Diet: No restrictions Discharge Activity: Return to Normal Activity, May Shower and Use Walker Weight Bearing Status: Weight bearing as tolerated Call your doctor if you observe: Fever of 101 or Higher, Inability to urinate, Inability to have a bowel movement, Shortness of breath, Dizziness, Fainting spells, Swelling in the ankles, Chest pain and Uncontrolled pain Additional Instructions: Discharge to [facility] 08/12/2023, intermediate, part B therapies. Please Follow Up With: DR. MARTIN When: As scheduled. Meaningful Use Info Meaningful Use Diagnoses (Choose all that apply): None applicable Discharge Plan Admission Admit Date/Time: 07/08/23 19:39 Primary Reason for Your Visit: Debility. Attending Provider: Jamie Deluna Chi Primary Care Provider: Tae Mariscal Discharge Orders/Prescriptions Prescriptions: New aspirin 81 mg Tablet,Delayed Release (Dr/Ec) 81 mg PO BIDCM 10 Days Qty: 20 0RF acetaminophen 500 mg Tablet 1,000 mg PO Q8 Qty: 0 0RF potassium chloride [Klor-Con M20] 20 mEq Tablet,Er Particles/Crystals 20 meq PO BIDCM 30 Days Qty: 0 0RF nifedipine 60 mg Tablet Extended Release 24hr 60 mg PO DAILY Qty: 0 0RF tamsulosin 0.4 mg Capsule 0.4 mg PO DAILY@1730 30 Days Qty: 0 0RF hydrochlorothiazide 25 mg Tablet 25 mg PO DAILY Qty: 0 0RF losartan 100 mg Tablet 100 mg PO DAILY Qty: 0 0RF metoprolol tartrate 25 mg Tablet 25 mg PO BID Qty: 0 0RF Referrals / Follow Up: Tae Mariscal MD [Primary Care Provider] - Disposition Disposition (needs filled in before D/C Order can be placed): NonSkilled NH/Intermed Care
--- NOTE | 2023-07-22 14:13 | TREXTCAR_ITS ---
Diet Diet Order/Speech Therapy: 07/13/23 11:31 Diet: Regular - No Added Salt Is pt able to select menu?: Yes Routine Orders/Code Status Code Status: Full Code Wound(s) Left hip: Wound Type: Surgical Incision Dressing Change: mepilex changed x2 07/10/23 Therapies Weight Bearing: Weight bearing as tolerated Extremity Affected:: Bilateral Lower Physical Therapy: Eval and Treat Occupational Therapy: Eval and Treat Problem/Diagnosis (1) Debility: Status: Acute Code(s): R53.81 - Other malaise (2) Fall: Status: Acute Code(s): W19.XXXA - Unspecified fall, initial encounter (3) Closed left hip fracture: Status: Acute Code(s): S72.002A - Fracture of unspecified part of neck of left femur, initial encounter for closed fracture (4) Syncope: Status: Acute Code(s): R55 - Syncope and collapse (5) Urinary retention: Status: Acute Code(s): R33.9 - Retention of urine, unspecified (6) BPH (benign prostatic hyperplasia): Status: Acute Code(s): N40.0 - Benign prostatic hyperplasia without lower urinary tract symptoms (7) Hypertension: Status: Chronic Code(s): I10 - Essential (primary) hypertension (8) Hypokalemia: Status: Acute Code(s): E87.6 - Hypokalemia (9) Urinary tract infection: Status: Acute Code(s): N39.0 - Urinary tract infection, site not specified Plan 87 year old male with below past medical history hospitalized for left hip fracture, 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 * Debility - PT/OT. * Pain - Tylenol 1000mg q8, Tramadol 50mg q6h prn pain (1-5), Oxycodone 2.5mg q4h prn pain (6-10). * Bowel - Miralax 17gm bid, senna/colace 1 tablet bid, Magnesium citrate 300ml daily prn. * Adult immunization - Administer pneumonia vaccine, covid19 vaccine, flu vaccine as appropriate. * DVT prophylaxis - Aspirin 81mg bid thru 08/04/2023. * Urinary tract infection - Keflex 500mg q12h thru 07/15/2023. * Hypertension - Metoprolol 25mg bid, Losartan 100mg daily, Nifedipine 60mg daily, HCTZ 25mg daily. * Hypokalemia - KCL 20meq bidcm. * BPH/Urinary retention - Tamsulosin 0.4mg daily, Voiding trails per protocol. * Shuffling gait - monitor for Parkinson Disease, consider therapeutic trial of Sinemet. Allergies/Procedures Done in Hospital Allergies No Known Allergies Allergy (Verified 07/08/23 20:18) Procedures: None Type of Care/Length of Stay Estimated LOS: Convalescent Care Less Than 30 days Type of Care Needed: Intermediate Rehab Potential: Fair Prognosis: Fair Additional Orders/Day of Discharge Additional Orders: part B therapies Day of Discharge: 07/25/23 Dietary and Speech Recommendations Dietitian Recommendations/Changes: Will continue Regular No Added Salt diet d/t res advanced age. Consider ONS if wt loss continues. Will monitor for changes in pt nutritional status and make additional rec as indicated. Follow Up Care Please Follow Up With: DR. MARTIN When: F/U AFTER DISCHARGE Please Follow Up With: Pawan Mariscal MD Family Medicine When: TEREZA Please Follow Up With: Pawan Brown MD Orthopedic Surgery When: TEREZA Please Follow Up With: DR.JOHN MARTIN When: Discharge Plan Admission Admit Date/Time: 07/08/23 19:39 Primary Reason for Your Visit: Debility. Attending Provider: Jamie Deluna Chi Primary Care Provider: Tae Mariscal Discharge Orders/Prescriptions Prescriptions: New aspirin 81 mg Tablet,Delayed Release (/Ec) 81 mg PO BIDCM 10 Days Qty: 20 0RF acetaminophen 500 mg Tablet 1,000 mg PO Q8 Qty: 0 0RF potassium chloride [Klor-Con M20] 20 mEq Tablet,Er Particles/Crystals 20 meq PO BIDCM 30 Days Qty: 0 0RF nifedipine 60 mg Tablet Extended Release 24hr 60 mg PO DAILY Qty: 0 0RF tamsulosin 0.4 mg Capsule 0.4 mg PO DAILY@1730 30 Days Qty: 0 0RF hydrochlorothiazide 25 mg Tablet 25 mg PO DAILY Qty: 0 0RF losartan 100 mg Tablet 100 mg PO DAILY Qty: 0 0RF metoprolol tartrate 25 mg Tablet 25 mg PO BID Qty: 0 0RF Referrals / Follow Up: Tae Mariscal MD [Primary Care Provider] - Disposition Disposition (needs filled in before D/C Order can be placed): [facility]illed [facility]
--- NOTE | 2023-07-22 14:14 | NURSING ---
PT LEFT AT 1400 FOR APPOINTMENT. TRANSPORTING.
--- NOTE | 2023-07-22 14:33 | NURSING ---
FLU SHOT GIVEN IN LT DELT. PT TOLERATED WELL.
[2023-07-22 16:00] VITALS: BP 135/76; PULSE 55; RESP 14; TEMP 36.6; O2SAT 94
--- NOTE | 2023-07-22 16:30 | NURSING ---
PT RETURNED FROM DR. APPOINTMENT. 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 FOLLOW UP IN 4 WEEKS.
[2023-07-22] MEDS: Tamsulosin HCl 0.4 MG Capsule PO (17:16)
[2023-07-22] MEDS: Polyethylene Glycol 3350 17 GM PACKET PO (22:39)
[2023-07-22 22:40] VITALS: PULSE 60
[2023-07-22] MEDS: Senna/Docusate Sodium 1 Tablet PO (22:40)
[2023-07-23] MEDS: Acetaminophen 500 MG Tablet 1000 MG PO ×3 (06:05→22:06)
[2023-07-23 07:31] LABS: Absolute Lymphocyte Count 1.75 X10^3/uL (0.83-4.51); Absolute Neutrophil Count 4.1 X10^3/uL (2.0-7.7); Basophil# 0.06 X10^3/uL; Basophil% 0.8 % (0-1); Eosinophil# 0.66 X10^3/uL; Eosinophils% 9.1 % (0-5); Hematocrit 40.3 % (40-54); Hemoglobin 13.2 g/dL (13.0-16.5); Lymphocyte # 1.75 X10^3/ul (0.83-4.51); Lymphocyte % 24.1 % (19-41); Mean Corp Hgb Conc 32.8 g/dL (32-36); Mean Corpuscular Hgb 31.4 pg (27.0-32.0); Mean Corpuscular Volume 95.7 fL (80-94); Mean Platelet Vol. 8.7 fl (6.2-12.0); Monocyte# 0.67 X10^3/uL; Monocyte% 9.2 % (0-10); NRBC Flagged by Analyzer 0 % (0-5); Neutrophil # 4.11 X10^3/uL (2.7-7.7); Neutrophil % 56.5 % (47-70); Platelet Count 384 K/mm3 (150-450); RBC Distribution Width CV 14.7 % (11.6-14.6); RBC Distribution Width SD 51.2 fl (35.1-43.9); Red Blood Count 4.21 M/mm3 (4.6-6.2); White Blood Count 7.3 K/mm3 (4.4-11.0)
[2023-07-23] MEDS: Potassium Chloride Oral Tablet 20 MEQ PO ×3 (08:17→16:44)
[2023-07-23] MEDS: Losartan Potassium 100 MG Tablet PO (08:17)
[2023-07-23] MEDS: hydroCHLOROthiazide 25 MG Tablet PO (08:17)
[2023-07-23] MEDS: Aspirin E.C. 81 MG Tablet PO ×2 (08:17→16:45)
[2023-07-23] MEDS: NIFEdipine 60 MG Tablet PO (08:18)
[2023-07-23] MEDS: Clotrimazole/Betamethasone 1 Tube 1 APPLIC TOPICAL ×2 (08:19→22:07)
[2023-07-23 08:39] LABS: Anion Gap 5 (5-15); BUN 19 mg/dL (7-18); BUN/Creat Ratio 20.8 RATIO (10-20); Calcium,Total 8.8 mg/dL (8.5-10.1); Chloride 110 mmol/L (98-107); Creatinine, Serum 0.91 mg/dL (0.70-1.30); EST Glomerular Filtration Rate 84 mL/min (>60); Est Glom Filt Rate - Afr Amer 101 mL/min (>60); Estimated Creatinine Clearance 65.85 ml/min; Glucose 90 mg/dL (74-106); Potassium 3.3 mmol/L (3.5-5.1); Sodium Level 140 mmol/L (136-145)
[2023-07-23 11:22] VITALS: BP 117/62; PULSE 61
[2023-07-23] MEDS: Metoprolol Tartrate 25 MG Tablet PO ×2 (11:22→22:06)
[2023-07-23 13:15] VITALS: BP 128/58; PULSE 55; RESP 16; TEMP 36.3; O2SAT 98
[2023-07-23] MEDS: Tamsulosin HCl 0.4 MG Capsule PO (16:44)
[2023-07-23 22:06] VITALS: BP 129/52; PULSE 55
[2023-07-24] MEDS: Acetaminophen 500 MG Tablet 1000 MG PO ×3 (04:58→20:44)
[2023-07-24 07:33] LABS: Anion Gap 6 (5-15); BUN 18 mg/dL (7-18); BUN/Creat Ratio 21.4 RATIO (10-20); Calcium,Total 8.5 mg/dL (8.5-10.1); Chloride 109 mmol/L (98-107); Creatinine, Serum 0.84 mg/dL (0.70-1.30); EST Glomerular Filtration Rate 92 mL/min (>60); Est Glom Filt Rate - Afr Amer 111 mL/min (>60); Estimated Creatinine Clearance 71.34 ml/min; Glucose 83 mg/dL (74-106); Potassium 3.4 mmol/L (3.5-5.1); Sodium Level 140 mmol/L (136-145)
[2023-07-24] MEDS: hydroCHLOROthiazide 25 MG Tablet PO (09:17)
[2023-07-24 09:18] VITALS: BP 140/53; PULSE 60
[2023-07-24] MEDS: NIFEdipine 60 MG Tablet PO (09:18)
[2023-07-24] MEDS: Aspirin E.C. 81 MG Tablet PO ×2 (09:18→15:55)
[2023-07-24] MEDS: Potassium Chloride Oral Tablet 20 MEQ PO ×3 (09:18→17:58)
[2023-07-24] MEDS: Metoprolol Tartrate 25 MG Tablet PO ×2 (09:18→20:45)
[2023-07-24] MEDS: Losartan Potassium 100 MG Tablet PO (09:18)
[2023-07-24] MEDS: Clotrimazole/Betamethasone 1 Tube 1 APPLIC TOPICAL ×2 (09:21→20:45)
[2023-07-24 14:13] VITALS: BP 129/58; PULSE 61; RESP 16; TEMP 36.3; O2SAT 96
[2023-07-24 15:16] VITALS: BP 126/62; PULSE 58; RESP 16; TEMP 36.4; O2SAT 96
[2023-07-24] MEDS: Tamsulosin HCl 0.4 MG Capsule PO (17:58)
[2023-07-24 20:45] VITALS: BP 127/52; PULSE 57
[2023-07-24 21:00] VITALS: O2SAT 94
[2023-07-24 21:15] VITALS: BP 143/70; PULSE 72; TEMP 36.8; O2SAT 96
--- NOTE | 2023-07-24 21:15 | NURSING ---
Addendum entered by Margarita Head 07/25/23 10:27: updated this AM @3040. Original Note: Pt was found by SWITCH BOX INSTALLER sitting on floor. States he was trying to get to his urinal( urinal was attached to bed rail) across the room. Pt vitals WNL, PERRLA, and no c/o of injury or pain.
--- NOTE | 2023-07-24 22:57 | PCA ---
This LATRINE CLEANER when rounding checked with patient to see if they wanted to get cleaned up for bed. Pt was in bed already and stated that they did not want wash up at this time but would like to wait until the morning. LATRINE CLEANER checked bed alarm before leaving the room.
[2023-07-25] MEDS: Acetaminophen 500 MG Tablet 1000 MG PO (05:12)
[2023-07-25 06:49] LABS: Anion Gap 6 (5-15); BUN 16 mg/dL (7-18); Calcium,Total 8.6 mg/dL (8.5-10.1); Chloride 110 mmol/L (98-107); Creatinine, Serum 0.84 mg/dL (0.70-1.30); EST Glomerular Filtration Rate 92 mL/min (>60); Est Glom Filt Rate - Afr Amer 111 mL/min (>60); Estimated Creatinine Clearance 71.34 ml/min; Glucose 90 mg/dL (74-106); Potassium 3.2 mmol/L (3.5-5.1); Sodium Level 142 mmol/L (136-145)
[2023-07-25 08:54] VITALS: BP 129/58; PULSE 61
[2023-07-25] MEDS: Metoprolol Tartrate 25 MG Tablet PO (08:54)
[2023-07-25] MEDS: Potassium Chloride Oral Tablet 20 MEQ 40 MEQ PO (08:54)
[2023-07-25] MEDS: Losartan Potassium 100 MG Tablet PO (08:54)
[2023-07-25] MEDS: Aspirin E.C. 81 MG Tablet PO (08:54)
[2023-07-25] MEDS: NIFEdipine 60 MG Tablet PO (08:54)
[2023-07-25] MEDS: Clotrimazole/Betamethasone 1 Tube 1 APPLIC TOPICAL (08:55)
--- NOTE | 2023-07-25 09:47 | NURSING ---
Report called to nurse, Balaji at [facility].
== END 2023-07-25 11:15 | DRG 560 ==
PROVIDERS: Admitting Provider Family Medicine Geriatric Medicine; PCP Family Medicine; Referring Provider Family Medicine Geriatric Medicine; Visit Provider Family Medicine Geriatric Medicine
DX: S72.002D Fracture of unspecified part of neck of left femur, subsequent encounter for closed fracture with routine healing (principal); N39.0 Urinary tract infection, site not specified; E87.6 Hypokalemia; I10 Essential (primary) hypertension; W19.XXXD Unspecified fall, subsequent encounter; R33.8 Other retention of urine; N40.1 Benign prostatic hyperplasia with lower urinary tract symptoms
CPT/HCPCS: 36415; 80048; 85025; 87811; 92507; 92523; 97110; 97116; 97129; 97130; 97162; 97165; 97530; 97535; 97802; 90662